=== PATIENT | female | born 1970 | race Two or more races ===

== ENCOUNTER → 2024-06-22 | Outpatient (CLI) | payer BC, SELFPAY ==
--- NOTE | 2024-06-22 07:15 | XR_ITS ---
Examination: Abdomen sonogram, Limited Date and time of exam: June 22, 2024 0711 hrs. Indications: Chronic abdominal pain, history gallstones, history fatty liver Technique: Real-time jean scale transabdominal sonographic images of the upper abdomen obtained. Findings: Multiple gallstones Normal gallbladder wall Normal common bile duct 0.3 cm Pancreatic head 1.4 cm Liver 14.7 cm multiple liver cysts, the largest in the right lobe 3.1 x 2.5 x 3.2 cm Normal hepatopedal portal venous flow Patent IVC Impression: Cholelithiasis, negative for cholecystitis Normal common bile duct
== END | disposition home or self-care (01) ==
PROVIDERS: Referring Provider Nurse Anesthetist, Certified Registered; Visit Provider Nurse Anesthetist, Certified Registered
DX: K80.20 Calculus of gallbladder without cholecystitis without obstruction (principal)
CPT/HCPCS: 76705

== ENCOUNTER → 2024-09-22 | Outpatient (CLI) | payer BC, SELFPAY ==
[2024-09-22 15:11] LABS: Collection Type, Urine Clean Catch; Squamous Epithelial Cell,Urine 0 /hpf (0-5)
[2024-09-22 17:53] LABS: Bilirubin,Urine Negative (Negative); Blood,Urine Negative (Negative); Clarity,Urine Clear (Clear/Hazy); Color,Urine Colorless (Lt Yel-Yel); Glucose, Urine Negative (Negative); Ketones,Urine Negative (Negative); Leukocyte Esterase,Urine Negative (Negative); Nitrite,Urine Negative (Negative); PH,Urine 7.5 (5.0-7.0); Protein,Urine Negative (Neg - Trace); RBC,Urine < 1 /hpf (0-3); Urobilinogen,Urine Negative mg/dL (0.0-1.0); WBC,Urine < 1 /hpf (0-5)
== END | disposition home or self-care (01) ==
LOC: SLDO 14:47
PROVIDERS: Referring Provider Registered Nurse; Visit Provider Registered Nurse
DX: N39.0 Urinary tract infection, site not specified (principal)
CPT/HCPCS: 81001; 87086

== ENCOUNTER → 2024-10-09 | Outpatient (CLI) | payer BC, SELFPAY ==
--- NOTE | 2024-10-09 08:30 | XR_ITS ---
Examination: Screening digital mammography, bilateral Computer aided detection 3-D breast Tomosynthesis, bilateral Date and time of exam: October 09, 2024 0756 hours Compared to mammograms dating to October 29, 2018 Indication: Screening Technique: Nonmagnified MLO, CC views of the breasts to been obtained, reconstructed from 3-D Tomosynthesis images. R2 computer aided detection program utilized for evaluation of suspicious masses and/or abnormal calcifications. 3-D Tomosynthesis images obtained. Findings: The breasts are heterogeneously dense, which may obscure small masses 18 mm focal asymmetry upper outer right breast Intact implants Benign calcifications Impression: BI-RADS Category 0: Incomplete: Need additional imaging evaluation 18 mm focal asymmetry upper outer right breast, recommend follow-up spot tomographic views of this asymmetry as well as right breast sonography to complete the workup
[2024-10-09 08:45] LABS: Basophils % (Auto) 1 % (0-2.5); Eosinophils # (Auto) 0.1 Thou/mm3 (0.0-0.5); Eosinophils % (Auto) 3 % (0-10); Hematocrit 40.8 % (36.0-46.0); Hemoglobin 13.9 g/dL (12.0-16.0); Immature Granulocytes % (Auto) 0 % (0-0); Immature Granulocytes Auto 0.02 Thou/mm3 (0.00-0.00); Lymphocytes % (Auto) 42 % (10-50); Mean Corpuscular HGB Conc 34.1 g/dl (31.0-37.0); Mean Corpuscular Hemoglobin 29.1 pg (25.0-35.0); Mean Corpuscular Volume 86 fL (80-100); Monocytes # (Auto) 0.4 Thou/mm3 (0.0-0.8); Monocytes % (Auto) 8 % (0-12); Neutrophils # (Auto) 2.1 Thou/mm3 (1.8-7.7); Neutrophils % (Auto) 46 % (37-80); Nucleated Red Blood Cell % 0 /100 WBC (0); Platelet Count 206 Thou/mm3 (140-440); RDW Standard Deviation 39.8 fL (36.4-46.3); Red Blood Count 4.77 Miln/mm3 (4.00-5.20); White Blood Count 4.6 Thou/mm3 (3.6-11.0)
[2024-10-09 08:50] LABS: Glucose Estimated Average 111 mg/dL (80-131); Hemoglobin A1C 5.5 % Hgb (4.8-6.0)
[2024-10-09 08:59] LABS: Vitamin D 25 Hydroxy Total 111.6 ng/mL (7.3-40.2)
[2024-10-09 09:13] LABS: Alanine Aminotransferase 19 U/L (10-49); Albumin, Serum 4.1 gm/dL (3.5-5.0); Alkaline Phosphatase 77 U/L (46-116); Anion Gap 7 (7-16); Aspartate Amino Transferase 16 U/L (0-34); BUN/Creatinine Ratio 16 Ratio (12-20); Bilirubin,Total 0.7 mg/dL (0.3-1.2); Blood Urea Nitrogen 13 mg/dL (9-23); Calcium 9.3 mg/dL (8.3-10.6); Calcium (Corrected) 9.3 mg/dL (8.5-10.1); Carbon Dioxide 29.3 mMol/L (20.0-31.0); Cardiac Risk Estimate 4.5 RATIO (3.7-5.6); Chloride 105 mMol/L (98-107); Cholesterol 216 mg/dL (132-200); Creatinine (Component) 0.8 mg/dL (0.6-1.3); Globulin 2.1 gm/dL (2.3-3.5); Glucose 91 mg/dL (74-106); HDL Cholesterol 48 mg/dL (40-60); LDL Cholesterol,Calculated 141 mg/dL (0-130); Osmolality,Calculated 281 (275-295); Potassium 4.5 mMol/L (3.4-5.1); Sodium 141 mMol/L (136-145); Thyroid Stimulating Hormone 1.44 uIU/mL (0.55-4.78); Total Protein 6.2 gm/dL (5.7-8.2); Triglycerides 133 mg/dL (30-150); eGFR > 60 See Note
== END | disposition home or self-care (01) ==
LOC: CDIM 07:39 → COPL 07:46
PROVIDERS: PCP Family Medicine; Referring Provider Registered Nurse; Visit Provider Registered Nurse
DX: Z12.31 Encounter for screening mammogram for malignant neoplasm of breast (principal); E78.5 Hyperlipidemia, unspecified; R79.89 Other specified abnormal findings of blood chemistry; Z83.3 Family history of diabetes mellitus
CPT/HCPCS: 36415; 77063; 77067; 80053; 80061; 82306; 83036; 84443; 85025

== ENCOUNTER → 2024-10-26 | Outpatient (CLI) | payer BC, SELFPAY ==
--- NOTE | 2024-10-26 09:00 | XR_ITS ---
Examination: Breast ultrasound, unilateral, right complete Date and time of exam: October 26, 2024 0856 hours INDICATIONS: Mammogram October 09, 2024 18 mm focal asymmetry upper outer right breast Technique: Real-time jean scale ultrasonographic imaging performed right breast including all 4 quadrants as well as nipple retroareolar and axillary region. Findings: Multiple benign cysts, the largest in the 9:00 position 6 x 5 mm No solid nodules Dilated retroareolar ducts Impression: BI-RADS Category 2: Benign findings
--- NOTE | 2024-10-26 09:30 | XR_ITS ---
Examination: Diagnostic digital mammography, unilateral, right Computer aided detection 3-D breast Tomosynthesis, unilateral Date and time of exam: October 26, 2024 0920 hours INDICATIONS: Mammogram October 09, 2024 18 mm focal asymmetry upper outer right breast Technique: Nonmagnified MLO, CC views of the right breast have been obtained, reconstructed from 3-D Tomosynthesis images. R2 computer aided detection program utilized for evaluation of suspicious masses and/or abnormal calcifications. 3-D Tomosynthesis images obtained. Findings: The breast is heterogeneously dense, which may obscure small masses No suspicious mass Impression: BI-RADS category 2: Benign findings Return to yearly follow-up mammography
== END | disposition home or self-care (01) ==
LOC: CDIM 08:41
PROVIDERS: PCP Registered Nurse; Referring Provider Registered Nurse; Visit Provider Registered Nurse
DX: R92.321 Mammographic fibroglandular density, right breast (principal)
CPT/HCPCS: 76641; 77061; 77065; G0279

== ENCOUNTER 2025-03-20 18:48 | Inpatient (IN) | payer BC, SELFPAY ==
[2025-03-20 18:49] VITALS: BMI 24.1
[2025-03-20 19:31] VITALS: BP 132/88; PULSE 79; RESP 18; TEMP 37.1; O2SAT 98
--- NOTE | 2025-03-20 20:04 | XR_ITS ---
Examination: CT abdomen and pelvis without contrast. Coronal 3-D reconstructions. Sagittal 2-D reconstructions. Date and time of exam:March 20, 2025, 2021 hrs. Indications: Left-sided flank pain with nausea vomiting today CTDI: vol (mGy): 6.78 DLP: (mGycm): 358. Technique: Axial images of the abdomen have been obtained, 3 mm slice thickness Intravenous contrast material has not been administered. Low dose protocols were performed. One or more of the following dose reduction techniques were used; automated exposure control, adjustment of the mA and/or KV according to patient size, use of iterative reconstruction technique. Findings: Benign liver cysts. No gallstones. No splenic lesion No pancreatic or adrenal mass. No renal or ureteral calculi, no hydronephrosis Aorta normal size. Multiple fluid distended small bowel loops No pericecal inflammatory change No pelvic mass Mild free fluid in the pelvis Urinary bladder intact Impression: Suspicious for early small bowel obstruction, consider Gastrografin small bowel series follow-up.
[2025-03-20 20:43] LABS: Collection Type, Urine Clean Catch
[2025-03-20 20:47] LABS: Basophils # (Auto) 0.0 Thou/mm3 (0.0-0.2); Basophils % (Auto) 0 % (0-2.5); Eosinophils # (Auto) 0.0 Thou/mm3 (0.0-0.5); Eosinophils % (Auto) 0 % (0-10); Hematocrit 42.7 % (36.0-46.0); Hemoglobin 14.9 g/dL (12.0-16.0); Immature Granulocytes Auto 0.02 Thou/mm3 (0.00-0.00); Lymphocytes # (Auto) 1.6 Thou/mm3 (1.0-4.8); Lymphocytes % (Auto) 18 % (10-50); Mean Corpuscular HGB Conc 34.9 g/dl (31.0-37.0); Mean Corpuscular Hemoglobin 29.6 pg (25.0-35.0); Mean Corpuscular Volume 85 fL (80-100); Monocytes # (Auto) 0.4 Thou/mm3 (0.0-0.8); Monocytes % (Auto) 5 % (0-12); Neutrophils # (Auto) 7.0 Thou/mm3 (1.8-7.7); Neutrophils % (Auto) 77 % (37-80); Nucleated Red Blood Cell # 0.00 Thou/mm3 (0.00-0.00); Nucleated Red Blood Cell % 0 /100 WBC (0); Platelet Count 183 Thou/mm3 (140-440); RDW Standard Deviation 40.3 fL (36.4-46.3); Red Blood Count 5.04 Miln/mm3 (4.00-5.20); White Blood Count 9.1 Thou/mm3 (3.6-11.0)
[2025-03-20 20:55] LABS: HCG Qualitative,Urine Negative
[2025-03-20 20:56] LABS: Amorphous Crystals,Urine Present (Absent); Bilirubin,Urine Negative (Negative); Blood,Urine Negative (Negative); Budding Yeast,Urine Present; Clarity,Urine Turbid (Clear/Hazy); Color,Urine Drk-Yellow (Lt Yel-Yel); Glucose, Urine Negative (Negative); Ketones,Urine Negative (Negative); Leukocyte Esterase,Urine Negative (Negative); Nitrite,Urine Positive (Negative); PH,Urine 7.0 (5.0-7.0); Protein,Urine 1+ (Neg - Trace); RBC,Urine 2 /hpf (0-3); Specific Gravity,Urine 1.032 (1.001-1.035); Squamous Epithelial Cell,Urine 18 /hpf (0-5); Urobilinogen,Urine 2.0 mg/dL (0.0-1.0); WBC,Urine 4 /hpf (0-5)
[2025-03-20] MEDS: ONDANSETRON INJ 2 MG/ML INJ 2 ML 4 MG IM (20:56)
[2025-03-20 21:26] LABS: Alanine Aminotransferase 14 U/L (10-49); Albumin, Serum 4.7 gm/dL (3.5-5.0); Albumin/Globulin Ratio 1.7 (1.2-2.2); Alkaline Phosphatase 85 U/L (46-116); Anion Gap 12 (7-16); Aspartate Amino Transferase 22 U/L (0-34); BUN/Creatinine Ratio 10 Ratio (12-20); Bilirubin,Total 1.0 mg/dL (0.3-1.2); Blood Urea Nitrogen 8 mg/dL (9-23); Calcium 10.3 mg/dL (8.3-10.6); Calcium (Corrected) 10.3 mg/dL (8.5-10.1); Carbon Dioxide 27.7 mMol/L (20.0-31.0); Chloride 98 mMol/L (98-107); Creatinine (Component) 0.8 mg/dL (0.6-1.3); Estimated Creatinine Clearance 72.3 mL/min (>60); Globulin 2.7 gm/dL (2.3-3.5); Glucose 133 mg/dL (74-106); Osmolality,Calculated 275 (275-295); Potassium 3.6 mMol/L (3.4-5.1); Sodium 138 mMol/L (136-145); Total Protein 7.4 gm/dL (5.7-8.2); eGFR > 60 See Note
--- NOTE | 2025-03-20 22:20 | PD.EDABDPN ---
ED Abdominal Pain RME/HPI General Chief Complaint: Flu Like Symptoms Stated complaint: ABD PAIN, BACK PAIN, VOMITING SINCE YESTERDAY Time seen by provider: 03/20/25 18:53 Arrival date/time: 03/20/25 18:48 THIS IS A CASE OF 58 YEAR OLD FEMALE CAME IN THE EMERGENCY ROOM DUE TO ABDOMINAL PAIN GENERALIZED FOR 2 DAYS ASSOCIATED WITH NAUSEA AND VOMITING PAIN IS CRAMPING AND SHARP IN CHARACTER RADIATING TO THE BACK PATIENT DENIES ANY CONSTIPATION OR DIARRHEA Limitations: no limitations Related Data Previous Rx's ?Medication ?Instructions ?Recorded hydrocodone 5 mg-acetaminophen 300 1 tab PO BID PRN pain #4 tabs 01/28/ mg tablet Allergies Allergy/AdvReac Type Severity Reaction Status Date / Time No Known Allergies Allergy Verified 03/20/25 18:50 Review of Systems Review of Systems Systems Reviewed: All systems reviewed, normal except as documented Constitutional Constitutional: Reports system reviewed and no additional complaints, except as documented and Reports as per HPI ENT Ears, Nose, Mouth, and Throat: Denies dysphagia and Denies odynophagia Cardiovascular Cardiovascular: Reports system reviewed and no additional complaints, except as documented and Reports as per HPI Respiratory Respiratory: Reports system reviewed and no additional complaints, except as documented and Reports as per HPI Gastrointestinal Gastrointestinal: Reports system reviewed and no additional complaints, except as documented, Reports as per HPI, Reports abdominal pain, Denies belching, Denies bloating, Denies change in bowel habits, Denies change in stool character, Denies coffee ground emesis, Denies constipation, Denies cramping, Denies diarrhea, Denies dyspepsia, Denies dysphagia, Denies early satiety, Denies excessive flatus, Denies fecal incontinence, Denies heartburn, Denies hematemesis, Denies hematochezia, Denies loose stools, Denies melena, Reports nausea, Denies odynophagia, Denies tenesmus and Reports vomiting Neurologic Neurologic: Reports system reviewed and no additional complaints, except as documented and Reports as per HPI Past Medical History Past Medical History ENDOCRINE: Negative Diabetes Mellitus Type 2 Social History SMOKING STATUS: Never smoker ED Exam General Limitations: Present no limitations General appearance: Present alert, in no apparent distress and other (Patient is awake alert oriented not in distress nontoxic looking well-hydrated well-nourished) Head Head exam: Present atraumatic, normocephalic and normal inspection Eye Eye exam: Present normal appearance, PERRL and EOMI ENT ENT exam: Present normal exam, normal oropharynx and mucous membranes moist Neck Neck exam: Present normal inspection, full ROM and trachea midline; Absent tenderness Chest Chest inspection: Present normal inspection and symmetric chest wall rise; Absent tenderness Respiratory Respiratory exam: Present normal lung sounds bilaterally; Absent respiratory distress, wheezes, stridor, accessory muscle use or prolonged expiratory phase Cardiovascular Cardiovascular exam: Present regular rate, normal rhythm and normal heart sounds; Absent bradycardia, tachycardia, irregular rhythm or diastolic murmur Abdominal Exam Abdominal exam: Present soft, tenderness (Generalized tenderness no CVA tenderness) and normal bowel sounds; Absent distention, guarding, rebound, rigidity, diminished bowel sounds, hyperactive bowel sounds, hypoactive bowel sounds, organomegaly, psoas sign, obturator sign, Mora's sign, Rovsing's sign or tenderness at McBurney's Point Extremities Exam Extremities exam: Present normal inspection and full ROM Back Exam Back exam: Present normal inspection and full ROM Neurological Exam Neurological exam: Present alert, oriented X3, CN II-XII intact, normal gait and reflexes normal; Absent motor sensory deficit Psychiatric Psychiatric exam: Present normal affect and normal mood Skin Skin exam: Present warm, dry, intact and normal color Course Quality Measures none Orders Category Date Time Status COVID-19 Screening Questionnaire NOW Care 03/20/25 22:21 Active Decision to Admit X1 Care 03/20/25 22:20 Active NPO NOW Care 03/20/25 22:20 Active Diet NPO (NOW) Diet 03/20/25 22:[address] abdomen pelvis wo con Stat Exams 03/20/25 20:04 Completed CBC Stat Lab 03/20/25 20:32 Completed Comprehensive Metabolic Panel Stat Lab 03/20/25 20:32 Results HCG Qualitative,Urine Stat Lab 03/20/25 20:29 Completed Lipase Stat Lab 03/20/25 20:32 Results Urinalysis Stat Lab 03/20/25 20:29 Completed Ondansetron Inj [Zofran Inj] Med 03/20/25 20:40 Discontinued 4 mg IM X1 ONE Vital Signs Vital signs: Vital Signs Temperature 98.7 F 03/20/25 19:31 Pulse Rate 79 03/20/25 19:31 Respiratory Rate 18 03/20/25 19:31 Blood Pressure 132/88 H 03/20/25 19:31 Pulse Oximetry (%) 98 03/20/25 19:31 Oxygen Delivery Method Room Air 03/20/25 19:31 Oxygen saturation is 98% on room air Abdominal Pain MDM MDM Narrative MDM Narrative:: THIS IS A CASE OF 58 YEAR OLD FEMALE CAME IN THE EMERGENCY ROOM DUE TO ABDOMINAL PAIN GENERALIZED FOR 2 DAYS ASSOCIATED WITH NAUSEA AND VOMITING PAIN IS CRAMPING AND SHARP IN CHARACTER RADIATING TO THE BACK PATIENT DENIES ANY CONSTIPATION OR DIARRHEA physical examination patient is awake alert oriented not in distress nontoxic looking well-hydrated well-nourished no signs and symptoms of sepsis or dehydration abdominal exam noted to have generalized abdominal tenderness but no guarding or rebound no rigidity negative psoas negative straight and negative Rovsing's negative [place]'s negative sign negative CVA tenderness blood test showed no leukocytosis no anemia kidney and liver function is normal electrolytes and balance pending lipase urinalysis normal CT scan of the abdomen pelvis showed showed early small bowel obstruction spoke to Dr. Carmichael GI consult discussed patient condition history and physical examination relayed results of blood test and imaging he ordered to admit the patient by hospitalist ordered NGT n.p.o. and he will see the patient tomorrow I spoke to the hospitalist Dr. BURCH discussed patient condition history and physical examination result the result of the blood test and imaging and the order of Dr. Carmichael agreed that the patient need to be admitted and accept patient admission discussed with the patient the treatment plan and admission and agreed Patient data External records reviewed:: [facility] previous records Clinical information provided by:: patient Social determinants that could affect healthcare access:: none Patient has the following chronic illnesses:: None How is presenting disease/condition affected by chronic disease/condition?: no chronic disease Evaluation data The following diagnostics were reviewed and interpreted by me:: lab results and radiology exam(s) Lab and/or radiology exams considered but not ordered:: Reviewed Interpretation Summary: Reviewed Medications / Prescriptions Medications or Prescriptions considered but not ordered:: Given Medication administrations:: Medication Administration History Discontinued Medications Ondansetron HCl (Ondansetron Inj 2 Mg/Ml Inj 2 Ml) 4 mg IM X1 ONE; Protocol Stop: 03/20/25 20:41 Last Admin: 03/20/25 20:56 Dose: 4 mg Documented By: Given Consultations Consultation(s) initiated? (list below): Yes Consultation #1 (Physician, Specialty, Details): Dr. Carmichael GI consult discussed patient condition history and physical examination relayed the results of CT scan small bowel obstruction ordered to admit patient by hospitalist Consultation #2 (Physician, Specialty, Details): Dr BURCH discussed patient condition history and physical examination relayed results of the blood test and imaging and the order of Dr. Carmichael agreed that the patient need to be admitted and accept patient care Diagnosis Differential diagnosis abdominal pain: abdominal pain, acute appendicitis, calculus of kidney, diverticulitis, endometriosis, gastroenteritis and small bowel obstruction Most likely diagnosis given after review of the tests above:: Small bowel obstruction Admission Indicated Admission indicated?: indicated Explain why admission is indicated or not indicated:: Small bowel obstruction Admission Request Was there a request for admission?: Yes Admission Attestation Admission request attestation: Discussed case with [] from Hospitalist service regarding admission. Discussed patients ED course, exam findings, labs, and radiology results. The Hospitalist [agrees,declines] to accept the patient for admission. Disposition Plan Disposition Plan: Admit Discharge Plan Plan Patient Disposition: HOME (Self Care) Prescriptions/Referrals Prescriptions/Med Rec: No Action hydrocodone-acetaminophen 5-300 mg tablet 1 tab PO BID MDD 2/day PRN (Reason: pain) Qty: 4 0RF Referrals: Annie Wisdom MD [Primary Care Provider, Family Practice] - In 1 week Problem List Clinical Impression: Abdominal pain, Small bowel obstruction Patient/Caregiver Discharge Instructions Education Materials: Abdominal Pain, Small Bowel Obstruction Print Language: [place] Stand Alone Forms: Candice Award Info., Patient Portal Info Letter PA/NATIONAL SALES REPRESENTATIVE Supervising Physician PA/NATIONAL SALES REPRESENTATIVE Supervising Physician: Dr. Gerard
--- NOTE | 2025-03-20 23:07 | XR_ITS ---
Examination: Small bowel series AP supine abdomen 4 views Date and time: March 21, 2025, 0037 hrs. Indications: Abdominal pain and distention, small bowel obstruction pattern on CT study yesterday dilated small bowel loops Technique And Findings: Patient received 120 cc through the orogastric tube AP supine abdomen films immediate, 30 minutes, 1 hour and 2 hours obtained Dilated small bowel loops are noted, moderate Impression: Small bowel obstruction pattern Recommend follow-up abdomen films 6:00 AM, 9:00 AM
--- NOTE | 2025-03-20 23:19 | XR_ITS ---
Examination: AP chest single view Technique: AP portable upright chest single view Date and time: March 20, 2025, 11:30 PM. Indications: Status post orogastric tube placement Findings: Orogastric tube tip in the stomach satisfactory position Normal heart size. No lobar pneumonia. Minor atelectasis left base Impression: Orogastric tube satisfactory position
[2025-03-20 23:49] VITALS: BP 139/97; PULSE 94; RESP 18; TEMP 36.8; O2SAT 98
[2025-03-21 00:08] VITALS: BMI 23.8
--- NOTE | 2025-03-21 00:14 | ESHP_ITS ---
Documentation for date of: 03/21/25 [facility] History of Present Illness History of present illness: This is a 55 year-old female with no significant PMHx presenting to the ED with abdominal pain, nausea and vomiting. Pain started 3 days ago, constant, diffusely, rated 4-5/10, not related to eating, associated with nausea and vomiting of mainly abdominal content. She has a history of abdominal surgery including ventral hernia repair with mesh, abdominoplasty, and tubal ligation. Reports chronic constipation, usually she takes METMUCIL and constipation resolve usually. Also reports drinking less fluids over the last week, and has been out in the sun exercising daily. Last BM was this morning, small, non-bloody, normal consistency. Currently unable to tolerated oral intake due to nausea and vomiting. Denies headache, chills, fever, fall or trauma, diarrhea, abnormal weight change, upper or lower GI bleed inlcuding dark stool, dysuria, urinary frequency or urgency, or hematuria. Past Medical History: * None. Past Surgical History: * Tubal ligation, abdominoplasty, ventral hernia repair with mesh. * 3 full term , natural , no . Medications: * Multivitamin. Allergies: * NKA. Family History: * Non relevant Social History: * Denies alcohol, tobacco, or drug use. ED Course: * Slightly elevated BP at 132/88, HR 79, RR 18, afebrile, satting 98% on room air. * CBC unremarkable. * CHEM panel remarkable for GLUCOSE 133, corrected calcium 10.3, remainder CMP WNL. Lipase is pending. * UA showed nitrites, no WBC or RBC. * Abdominal CT showed early small bowel obstruction. Reason for admission: Early small bowel obstruction, refractory nausea and vomiting requiring IV fluids. Exam Vital Signs Temp Pulse Resp BP Pulse Ox O2 Del Method 98.2 F 94 18 139/97 H 98 Room Air 03/20/25 23:49 03/20/25 23:49 03/20/25 23:49 03/20/25 23:49 03/20/25 23:49 03/20/25 23:49 Narrative Exam GENERAL * Normal appearing make, in mild distress 2/2 pain. HEENT * NCAT.?DORY. Oral mucosa is moist. Patent Nares NECK * Supple, nontender, no JVD. CHEST * RRR, no m/g/r * CTAB, no w/r/r, symmetrical expansion. ABDOMEN * Soft, flat, diffuse tender to palpation * No guarding/rebound tenderness/masses. * Bowel sounds presents. EXTREMITIES * No edema/cyanosis.? SKIN * Warm and dry, no jaundice/rashes. NEUROMUSCULAR * No lumbar or midline, no CVA, no paraspinal muscle spasm or tenderness. * Moves all 4 extremities well, with full ROM and good CSM. * CASTANEDA x4, CN II-XII grossly intact. * No focal neurologic deficits. PSYCHIATRY * Normal mood and affect, cooperative, no SI or HI or hallucinations. Results: Labs 03/20/25 20:32 03/20/25 20:32 Labs: Short CBC 03/20/25 Range/Units 20:32 WBC 9.1 (3.6-11.0) Thou/mm3 Hgb 14.9 (12.0-16.0) g/dL Hct 42.7 (36.0-46.0) % Plt Count 183 (140-440) Thou/mm3 BMP 03/20/25 20:32 Sodium 138 Potassium 3.6 Chloride 98 Carbon Dioxide 27.7 BUN 8 L Creatinine 0.8 Glucose 133 H Calcium 10.3 Liver Function 03/20/25 Range/Units 20:32 Total Bilirubin 1.0 (0.3-1.2) mg/dL AST 22 (0-34) U/L ALT 14 (10-49) U/L Alkaline Phosphatase 85 (46-116) U/L Albumin 4.7 (3.5-5.0) gm/dL Urine 03/20/25 Range/Units 20:29 Urine Color Drk-Yellow A (Lt Yel-Yel) Urine Clarity Turbid A (Clear/Hazy) Urine pH 7.0 (5.0-7.0) Ur Specific [place] 1.032 (1.001-1.035) Urine Protein 1+ A (Neg - Trace) Urine Glucose (UA) Negative (Negative) Quality Measures Quality Measures none Medications Home Medications and Allergies Allergies Allergy/AdvReac Type Severity Reaction Status Date / Time No Known Allergies Allergy Verified 03/20/25 18:50 Visit Medications Acetaminophen (Acetaminophen 325 Mg Tablet) 650 mg NG Q6H PRN PRN Reason: PAIN SCALE 1-3 (mild Stop: 04/19/25 23:06 Acetaminophen (Acetaminophen 325 Mg Tablet) 650 mg PO Q6H PRN PRN Reason: Fever >100.4 Stop: 04/19/25 23:06 Heparin Sodium (Porcine) (Heparin Sod Inj 5000 Unit/Ml Vial) 5,000 unit SC BID DIONICIO Stop: 04/04/25 08:59 Morphine Sulfate (Morphine Sulf Inj 4 Mg/Ml Vial) 4 mg IV Q3HR PRN PRN Reason: PAIN SCALE 4-6 (Moderate Stop: 03/25/25 23:08 Morphine Sulfate (Morphine Sulf Inj 4 Mg/Ml Vial) 2 mg IV Q3HR PRN PRN Reason: PAIN SCALE 7-10 (Severe Stop: 03/25/25 23:08 Ondansetron HCl (Ondansetron Inj 2 Mg/Ml Inj 2 Ml) 4 mg IVP Q6H PRN; Protocol PRN Reason: NAUSEA OR VOMITING Stop: 04/19/25 23:06 Pantoprazole Sodium (Pantoprazole Inj 40 Mg Vial) 40 mg IVP QDAY DIONICOI Stop: 04/20/25 08:59 Discontinued Medications Ondansetron HCl (Ondansetron Inj 2 Mg/Ml Inj 2 Ml) 4 mg IM X1 ONE; Protocol Stop: 03/20/25 20:41 Last Admin: 03/20/25 20:56 Dose: 4 mg Assessment & Plan Plan Otherwise healthy 55 year-old female admitted for early SBO, nausea and vomiting. Early SBO Refractory nausea and vomiting Hx of multiple abdominal surgeries Presents with 3 days of abdominal pain, nausea and vomiting. Last BM was this morning and was small and normal. CT findings of early bowel obstruction. No signs or symptoms of bowel ischemia. Nausea appears refractory and will need NGT intermittent suction. ? NPO, bowel rest ? NGT intermittent suction ? Small bowel series ? Antiemetics, PROTONIX, pain control PRN ? Maintanance NS @ 75 cc/h ? Pending LIPASE Mild hypercalcemia Corrected CA 10.3 likley in setting of dehyration ? Daily labs Hyperglycemia Elevated BP Maybe reactive. No hx of diabetes or HTN. ? Daily labs ? Daily vitals Asymptomatic bacteriuria UA positive for nitrite, no WBC. She is otherwise asymptomatic, afebrile, no leukocytosis. No indication for treatment at this time. Health maintenance Diet: NPO GI prophylaxis: PROTONIX DVT prophylaxis: HEPARIN SUBC Antibiotics: Not indicated CODE STATUS: FULL CODE Disposition: Treating early SBO Case was discussed with attending physician, Dr. Ferrera. Rose De Dios, DO PGY II This document was transcribed using voice recognition technology. Minor inaccuracies may be present. Attending Provider Attestation/Addendum After examination of the patient and review of the clinical data I feel that this patient needs admission to the hospital for further treatment/evaluation. Plan of care discussed with patient and is in agreement. I Emy Ferrera MD, attest that I was physically present for wheeler portions of evaluation, and examined patient, labs and imagings and plan of care were discussed with IM residents team, and I agree with the findings and plans documented above.
[2025-03-21] MEDS: SODIUM CHLORIDE 0.9% 1000 ML 1,000 ML 75 ML IV (00:52)
[2025-03-21 04:00] VITALS: BP 118/73; PULSE 96; RESP 18; TEMP 36.6; O2SAT 93
[2025-03-21 06:18] LABS: Basophils # (Auto) 0.0 Thou/mm3 (0.0-0.2); Basophils % (Auto) 0 % (0-2.5); Eosinophils # (Auto) 0.0 Thou/mm3 (0.0-0.5); Eosinophils % (Auto) 0 % (0-10); Hematocrit 43.7 % (36.0-46.0); Hemoglobin 15.0 g/dL (12.0-16.0); Immature Granulocytes Auto 0.02 Thou/mm3 (0.00-0.00); Lymphocytes # (Auto) 1.3 Thou/mm3 (1.0-4.8); Lymphocytes % (Auto) 14 % (10-50); Mean Corpuscular HGB Conc 34.3 g/dl (31.0-37.0); Mean Corpuscular Hemoglobin 29.5 pg (25.0-35.0); Mean Corpuscular Volume 86 fL (80-100); Monocytes # (Auto) 0.4 Thou/mm3 (0.0-0.8); Monocytes % (Auto) 4 % (0-12); Neutrophils # (Auto) 7.5 Thou/mm3 (1.8-7.7); Neutrophils % (Auto) 82 % (37-80); Nucleated Red Blood Cell # 0.00 Thou/mm3 (0.00-0.00); Nucleated Red Blood Cell % 0 /100 WBC (0); Platelet Count 178 Thou/mm3 (140-440); RDW Standard Deviation 40.2 fL (36.4-46.3); Red Blood Count 5.08 Miln/mm3 (4.00-5.20); White Blood Count 9.2 Thou/mm3 (3.6-11.0)
--- NOTE | 2025-03-21 06:45 | XR_ITS ---
Examination: Abdomen AP single view Technique: AP portable supine abdomen, single view Exam date and time: March 21, 2025, 0645 hrs. Indications: Abdominal pain and distention this week, 6 hour delayed film post small bowel series Findings: Most of the contrast is in the distended stomach There is contrast in distended mid small bowel loops, ileal loops appear more normal in configuration There is some contrast in the colon Impression: Incomplete small bowel obstruction, recommend follow-up film 1200 noon
[2025-03-21 06:48] LABS: Alanine Aminotransferase 13 U/L (10-49); Albumin, Serum 4.8 gm/dL (3.5-5.0); Albumin/Globulin Ratio 2.0 (1.2-2.2); Alkaline Phosphatase 80 U/L (46-116); Anion Gap 12 (7-16); Aspartate Amino Transferase 16 U/L (0-34); BUN/Creatinine Ratio 10 Ratio (12-20); Bilirubin,Total 1.0 mg/dL (0.3-1.2); Blood Urea Nitrogen 8 mg/dL (9-23); Calcium 10.3 mg/dL (8.3-10.6); Calcium (Corrected) 10.3 mg/dL (8.5-10.1); Carbon Dioxide 30.3 mMol/L (20.0-31.0); Chloride 99 mMol/L (98-107); Creatinine (Component) 0.8 mg/dL (0.6-1.3); Estimated Creatinine Clearance 72.3 mL/min (>60); Globulin 2.4 gm/dL (2.3-3.5); Glucose 126 mg/dL (74-106); Magnesium 2.1 mg/dL (1.6-2.6); Osmolality,Calculated 281 (275-295); Phosphorous 4.0 mg/dL (2.4-5.1); Potassium 3.6 mMol/L (3.4-5.1); Sodium 141 mMol/L (136-145); Total Protein 7.2 gm/dL (5.7-8.2); eGFR > 60 See Note
--- NOTE | 2025-03-21 07:51 | PD.RESPRO ---
Documentation for date of: 03/21/25 Subjective Subjective Interval history: Ms Mart is a 55-year-old woman with no significant past medical history who presented with 3 days of abdominal pain nausea vomiting with an extensive surgical history of abdominoplasty tubal ligation and ventral hernia repair. She was admitted for obstruction NG tube was placed now continues on Gastrografin small bowel series. 03/21/2025: Patient seen and examined at bedside patient family and daughters did express concern that this may happen again and inquire about possible preventative measures they can take to reduce the risk. Patient and family are informed that abdominal surgery is the most predictive risks factor for developing small bowel obstruction, recommend that she establish care with general surgery in case this were to happen in the future. This morning patient endorsed having later endorsed watery bowel movement her pain was minimal she started on 1 bag of IV Tylenol and maintenance fluids with 85 cc/kg of LR. She had 1 episode of emesis at 730 this morning that resolved with Zofran. Follow-up 12 PM abdominal x-ray series. Exam Vital Signs Temp Pulse Resp BP Pulse Ox O2 Del Method 97.9 F 96 18 118/73 93 L Room Air 03/21/25 04:00 03/21/25 04:00 03/21/25 04:00 03/21/25 04:00 03/21/25 04:00 03/21/25 04:00 Narrative Exam GENERAL: no acute distress, AAO x3, comfortably laying in bed HEENT: Head AT/ NC. Mucous membranes moist. PERRL. NG tube in place (clamped) CARDIOVASCULAR: RRR. Normal S1/S2, No m/r/g. No pitting edema of bilateral LEs. RESPIRATORY: CTAB. No wheezing, rhonchi, crackles. GASTROINTESTINAL: Abdomen soft, mild epigastric tenderness to palpation no palpable masses. Bowel sounds present (hx of abdominal surgeries). MUSCULOSKELETAL:? No cyanosis or edema, no visible joint swelling. NEUROLOGICAL: CN II-XII grossly intact. No focal deficits. Sensation intact, symmetric. PSYCHIATRIC: Awake and alert, not agitated, normal mood and affect. SKIN: No obvious rashes, no jaundice, normal turgor. Objective Labs 03/22/25 04:27 03/22/25 04:27 Labs: Laboratory Results - last 24 hr 03/20/25 03/20/25 03/21/25 20:29 20:32 05:55 WBC 9.1 9.2 RBC 5.04 5.08 Hgb 14.9 15.0 Hct 42.7 43.7 MCV 85 86 MCH 29.6 29.5 MCHC 34.9 34.3 RDW Std Deviation 40.3 40.2 Plt Count 183 178 Neut % (Auto) 77 82 H Lymph % (Auto) 18 14 [place] % (Auto) 5 4 Eos % (Auto) 0 0 Baso % (Auto) 0 0 Neut # (Auto) 7.0 7.5 Lymph # (Auto) 1.6 1.3 [place] # (Auto) 0.4 0.4 Eos # (Auto) 0.0 0.0 Baso # (Auto) 0.0 0.0 Immature Gran # (Auto) 0.02 H 0.02 H Absolute Nucleated RBC 0.00 0.00 Immature Gran % 0 0 Nucleated RBC % 0 0 Sodium 138 141 Potassium 3.6 3.6 Chloride 98 99 Carbon Dioxide 27.7 30.3 Anion Gap 12 12 BUN 8 L 8 L Creatinine 0.8 0.8 Estim Creat Clear Calc 72.3 72.3 eGFR > 60 > 60 BUN/Creatinine Ratio 10 L 10 L Glucose 133 H 126 H Calculated Osmolality 275 281 Calcium 10.3 10.3 Corrected Calcium 10.3 H 10.3 H Phosphorus 4.0 Magnesium 2.1 Total Bilirubin 1.0 1.0 AST 22 16 ALT 14 13 Alkaline Phosphatase 85 80 Total Protein 7.4 7.2 Albumin 4.7 4.8 Globulin 2.7 2.4 Albumin/Globulin Ratio 1.7 2.0 Ur Collection Type Clean Catch Urine Color Drk-Yellow A Urine Clarity Turbid A Urine pH 7.0 Ur Specific [place] 1.032 Urine Protein 1+ A Urine Glucose (UA) Negative Urine Ketones Negative Urine Blood Negative Urine Nitrite Positive Urine Bilirubin Negative Urine Urobilinogen (Auto) 2.0 Ur Leukocyte Esterase Negative Urine RBC 2 Urine WBC 4 Ur Squamous Epith Cells 18 H Amorphous Crystals Present A Urine Bacteria None Urine Yeast (Budding) Present A Urine HCG, Qual Negative Quality Measures Quality Measures VTE prophylaxis Assessment & Plan Assessment Current Active Medications: Generic Name Dose Route Start Last Admin Trade Name Freq PRN Reason Stop Dose Admin Acetaminophen 650 mg 03/20/25 23:07 Acetaminophen 325 Mg Tablet NG 04/19/25 23:06 Q6H PRN PAIN SCALE 1-3 (mild Acetaminophen 650 mg 03/20/25 23:07 Acetaminophen 325 Mg Tablet PO 04/19/25 23:06 Q6H PRN Fever >100.4 Heparin Sodium (Porcine) 5,000 unit 03/21/25 09:00 Heparin Sod Inj 5000 Unit/Ml Vial SC 04/04/25 08:59 BID DIONICIO Sodium Chloride 1,000 mls @ 75 mls/hr 03/21/25 00:30 03/21/25 00:52 Ns IV 04/20/25 00:29 75 mls/hr .[id number] DIONICIO Administration Morphine Sulfate 4 mg 03/20/25 23:09 Morphine Sulf Inj 4 Mg/Ml Vial IV 03/25/25 23:08 Q3HR PRN PAIN SCALE 4-6 (Moderate Morphine Sulfate 2 mg 03/20/25 23:09 Morphine Sulf Inj 4 Mg/Ml Vial IV 03/25/25 23:08 Q3HR PRN PAIN SCALE 7-10 (Severe Ondansetron HCl 4 mg 03/20/25 23:07 Ondansetron Inj 2 Mg/Ml Inj 2 Ml IVP 04/19/25 23:06 Q6H PRN NAUSEA OR VOMITING Protocol Pantoprazole Sodium 40 mg 03/21/25 09:00 Pantoprazole Inj 40 Mg Vial IVP 04/20/25 08:59 QDAY DIONICIO Plan Ms. Chery Rosenthal is a 55-year-old woman with past medical history significant for several abdominal surgeries (abdominoplasty tubal ligation ventral hernia repair with mesh) who presented to the emergency department with 3 days of abdominal pain nausea and vomiting found to have evidence of early small bowel obstruction on CTAP, NG tube was placed, started on Gastrografin small bowel series, endorses passing gas and having watery bowel movement today. Consider removing NG tube this evening if she does not endorse persistent nausea. Early SBO Refractory nausea and vomiting Hx of multiple abdominal surgeries Presents with 3 days of abdominal pain, nausea and vomiting. Last BM was this morning and was small and normal. CT findings of early bowel obstruction. No signs or symptoms of bowel ischemia. CTAP with c/f early sbo ? NPO, bowel rest ? NGT clamped ? Small bowel series- ongoing ? Antiemetics, PROTONIX, pain control (IV apap, 1 bag given) ? Maintanance LR 85 cc/hr ? Pending LIPASE Mild hypercalcemia Corrected CA 10.3 likley in setting of dehyration ? Daily labs - cont IV fluids Asymptomatic pyuria UA positive for nitrite, 4 WBC. She is otherwise asymptomatic, afebrile, no leukocytosis. No indication for treatment at this time. Health maintenance Diet: NPO GI prophylaxis: PROTONIX DVT prophylaxis: HEPARIN SUBC Antibiotics: Not indicated CODE STATUS: FULL CODE Disposition: ongoing small bowel series Plan discussed with Dr. Juan C Calvo MD PGY1 Attending Provider Attestation/Addendum I have examined the patient, reviewed labs and imaging findings, discussed the case with the resident(s), and reviewed entered orders. I agree with the plan of care as outlined in this note, with these additional summaries/recommendations: Patient seen at bedside. Patient admitted overnight for small bowel obstruction. Patient and family seen at bedside. She reports her pain is currently controlled with current regimen. NG tube in place to LIS. Patient undergoing small bowel series. Likely etiology for SBO related to previous abdominal surgeries/adhesions. While seeing patient, she had a large watery bowel movement. At this time unclear if bowel movement was residual stool passed blockage or if SBO has resolved. Will continue to follow-up small bowel series. If unresolving we will consult general surgery. Continue IVF. NPO. Zofran as needed for nausea. Patient and family updated on the plan and in agreement. All questions answered to satisfaction. Please see residents note for additional details and management. Dr. Juan C MD
[2025-03-21] MEDS: ONDANSETRON INJ 2 MG/ML INJ 2 ML 4 MG IVP (07:55)
[2025-03-21 08:00] VITALS: BP 130/85; PULSE 91; RESP 16; TEMP 36.4; O2SAT 93
[2025-03-21] MEDS: HEPARIN SOD INJ 5000 UNIT/ML VIAL SC ×2 (08:04→20:05)
[2025-03-21] MEDS: ACETAMINOPHEN IVPB 1,000 MG/100 ML VIAL 250 MG IV (09:11)
[2025-03-21] MEDS: RINGERS LACTATED 1000 ML 1,000 ML 85 ML IV ×2 (09:37→21:10)
--- NOTE | 2025-03-21 09:45 | XR_ITS ---
Examination: Abdomen AP single view Technique: AP portable supine abdomen, single view Exam date and time: 9 hour delayed films post SBS, abdominal pain and distension this week Findings: Contrast now present throughout the colon Impression: Negative for complete small bowel obstruction
--- NOTE | 2025-03-21 11:33 | PC.SS ---
Addendum entered by DELMER Graf 03/21/25 15:27: Rounding note: d/c tomorrow. Original Note: Patient is a 55 year old female presenting to the hospital for SBO. TIMBER CUTTER met with patient, at bedside, was family. Patient gave permission for family to remain in room. TIMBER CUTTER introduced self and role and reason for visit explained. Patient confirmed demographic information and confirmed she lives at home with her Esdras Mart PH: [phone]. In case she is unable to make medical decisions on her own she would like her Esdras to make them. Patient stated that she does not use any DME, does not have diabetes, and does not receive dialysis. Patient is employed daytime caregiver. Her PCP is Dr. Wisdom last appointment was in September 2024. Once medically clear patient would like to return home and family will provide transportation. Patient stated that she has not SS needs at the moment, SS will be available if any needs present themselves. PCP: Dr. Wisdom Decision maker: Chet Dewitt, d/c: home
[2025-03-21 12:00] VITALS: BP 126/82; PULSE 88; RESP 18; TEMP 36.3; O2SAT 92
--- NOTE | 2025-03-21 12:00 | XR_ITS ---
Examination: Abdomen AP single view Technique: AP portable supine abdomen, single view Exam date and time: March 21, 2025 1158 hours INDICATIONS: 12 hour delayed film post small bowel series today. FINDINGS: Most of the contrast is in the colon IMPRESSION: Negative for small bowel obstruction. No further films are needed
[2025-03-21 16:00] VITALS: BP 136/81; PULSE 83; RESP 16; TEMP 36.6; O2SAT 99
[2025-03-21 20:00] VITALS: BP 123/72; PULSE 84; RESP 18; TEMP 36.8; O2SAT 94
[2025-03-21 22:04] LABS: Lipase 35 U/L (12-53)
[2025-03-22] VITALS: BP 114/69; PULSE 76; RESP 17; TEMP 36.4; O2SAT 94
[2025-03-22 04:00] VITALS: BP 102/61; PULSE 73; RESP 16; TEMP 36.6; O2SAT 97
[2025-03-22 05:33] LABS: Basophils # (Auto) 0.0 Thou/mm3 (0.0-0.2); Basophils % (Auto) 1 % (0-2.5); Eosinophils # (Auto) 0.1 Thou/mm3 (0.0-0.5); Eosinophils % (Auto) 2 % (0-10); Hematocrit 36.6 % (36.0-46.0); Hemoglobin 12.0 g/dL (12.0-16.0); Immature Granulocytes Auto 0.02 Thou/mm3 (0.00-0.00); Lymphocytes # (Auto) 2.1 Thou/mm3 (1.0-4.8); Lymphocytes % (Auto) 36 % (10-50); Mean Corpuscular HGB Conc 32.8 g/dl (31.0-37.0); Mean Corpuscular Hemoglobin 28.8 pg (25.0-35.0); Mean Corpuscular Volume 88 fL (80-100); Monocytes # (Auto) 0.4 Thou/mm3 (0.0-0.8); Monocytes % (Auto) 6 % (0-12); Neutrophils # (Auto) 3.2 Thou/mm3 (1.8-7.7); Neutrophils % (Auto) 56 % (37-80); Nucleated Red Blood Cell # 0.00 Thou/mm3 (0.00-0.00); Nucleated Red Blood Cell % 0 /100 WBC (0); Platelet Count 143 Thou/mm3 (140-440); RDW Standard Deviation 42.7 fL (36.4-46.3); Red Blood Count 4.16 Miln/mm3 (4.00-5.20); White Blood Count 5.8 Thou/mm3 (3.6-11.0)
[2025-03-22 06:21] LABS: Alanine Aminotransferase 8 U/L (10-49); Albumin, Serum 3.6 gm/dL (3.5-5.0); Albumin/Globulin Ratio 2.1 (1.2-2.2); Alkaline Phosphatase 60 U/L (46-116); Anion Gap 10 (7-16); Aspartate Amino Transferase 16 U/L (0-34); BUN/Creatinine Ratio 14 Ratio (12-20); Bilirubin,Total 1.1 mg/dL (0.3-1.2); Blood Urea Nitrogen 11 mg/dL (9-23); Calcium 9.1 mg/dL (8.3-10.6); Calcium (Corrected) 9.4 mg/dL (8.5-10.1); Carbon Dioxide 29.2 mMol/L (20.0-31.0); Chloride 106 mMol/L (98-107); Creatinine (Component) 0.8 mg/dL (0.6-1.3); Estimated Creatinine Clearance 72.3 mL/min (>60); Globulin 1.7 gm/dL (2.3-3.5); Glucose 89 mg/dL (74-106); Magnesium 2.0 mg/dL (1.6-2.6); Osmolality,Calculated 287 (275-295); Phosphorous 3.3 mg/dL (2.4-5.1); Potassium 3.7 mMol/L (3.4-5.1); Sodium 145 mMol/L (136-145); Total Protein 5.3 gm/dL (5.7-8.2); eGFR > 60 See Note
[2025-03-22 07:50] VITALS: BP 102/68; PULSE 78; RESP 18; TEMP 36.4; O2SAT 98
[2025-03-22] MEDS: HEPARIN SOD INJ 5000 UNIT/ML VIAL SC (09:31)
--- NOTE | 2025-03-22 10:30 | PD.RESDS ---
Planned Discharge Date 03/22/25 DS: Providers Provider Date of admission: 03/20/25 23:07 Primary care physician: Annie Wisdom MD Admitting Provider: Emy Ferrera MD Attending Provider on Admission: Imer Irizarry MD Attending Provider on DC: Imer Irizarry MD Discharging Provider: Imer Irizarry MD DS: Diagnosis Problem List Completed Was Problem List Reviewed/Reconciled?: Yes Hospital Course Hospital Course Hospital course: History of Present Illness Ms Mart is a 55-year-old woman with no significant past medical history who presented with 3 days of abdominal pain nausea vomiting with an extensive surgical history of abdominoplasty tubal ligation and ventral hernia repair. She was admitted for small bowel obstruction. Hospital Course Upon admission, the patient was diagnosed with small bowel obstruction. A nasogastric (NG) tube was placed on low intermittent suction for decompression. She was managed conservatively with bowel rest, intravenous fluids, and monitoring. A small bowel series with Gastrografin contrast was performed, which demonstrated transit of contrast. Serial abdominal imaging, including a follow-up KUB, confirmed resolution of obstruction. The patient subsequently had multiple bowel movements with improvement in symptoms. She tolerated advancement of diet without recurrence of abdominal pain, nausea, or vomiting. She remained hemodynamically stable throughout hospitalization. Condition on Discharge Tolerating regular diet Normal bowel function restored Pain controlled without need for opioids Ambulating independently Vital signs stable Discharge Medications Resume home medications (none reported) Gradually return to normal activities as tolerated. Eat small, light, frequent meals. Follow up with PCP in 1-2 weeks. Use pain medication as needed with no more than 2 tablets in 24hrs. Plan discussed with Dr. Juan C Calvo MD PGY1 Time Spent with Patient Time attestation: Total time spent providing and/or coordinating discharge services: Time spent: Greater than 30 minutes Exam Vital Signs Temp Pulse Resp BP Pulse Ox O2 Del Method 97.5 F 78 18 102/68 98 Room Air 03/22/25 07:50 03/22/25 07:50 03/22/25 07:50 03/22/25 07:50 03/22/25 07:50 03/22/25 07:50 Narrative Exam GENERAL: no acute distress, AAO x3, comfortably laying in bed HEENT: Head AT/ NC. Mucous membranes moist. PERRL. CARDIOVASCULAR: RRR. Normal S1/S2, No m/r/g. No pitting edema of bilateral LEs. RESPIRATORY: CTAB. No wheezing, rhonchi, crackles. GASTROINTESTINAL: Abdomen soft, nontender to palpation no palpable masses. Bowel sounds present MUSCULOSKELETAL:? No cyanosis or edema, no visible joint swelling. NEUROLOGICAL: CN II-XII grossly intact. No focal deficits. Sensation intact, symmetric. PSYCHIATRIC: Awake and alert, not agitated, normal mood and affect. SKIN: No obvious rashes, no jaundice, normal turgor. Discharge Plan Plan Patient Disposition: HOME (Self Care) Patient condition on transfer: Stable Prescriptions/Referrals Prescriptions/Med Rec: No Action hydrocodone-acetaminophen 5-300 mg tablet 1 tab PO BID MDD 2/day PRN (Reason: pain) Qty: 4 0RF Referrals: Annie Wisdom MD [Primary Care Provider, [facility]] Patient/Caregiver Discharge Instructions Other Discharge Activity Instructions:: Gradually return to normal activities as tolerated. Eat small, light, frequent meals. Follow up with PCP in 1-2 weeks. Use pain medication as needed with no more than 2 tablets in 24hrs. Education Materials: Small Bowel Obstruction Print Language: Mongolian Stand Alone Forms: Candice Award Info., Patient Portal Info Letter, Work/Release Restrictions Discharge Order Discharge Orders: Discharge (Routine); Ordered 03/22/25 Ordered By: Christa Mays Quality Discharge Quality Measures VTE prophylaxis Attestestation MD Attestation I have examined the patient, reviewed labs and imaging findings, discussed the case with the resident(s), and reviewed entered orders. I agree with the plan of care as outlined in this note. Time Spent: [address] Juan C MD
[2025-03-22 12:00] VITALS: BP 116/75; PULSE 76; RESP 17; TEMP 36.3; O2SAT 95
== END 2025-03-22 13:30 | disposition home or self-care (01) | DRG 390 ==
LOC: SERX 22:20 → S3SX 03-22 07:07 → SERHOLD 03-24 08:56
PROVIDERS: Nurse Practitioner Family; Admitting Provider Student in an Organized Health Care Education/Training Program; Emergency Provider Emergency Medicine; PCP Family Medicine; Visit Provider Student in an Organized Health Care Education/Training Program
DX: K56.600 Partial intestinal obstruction, unspecified as to cause (principal); E83.52 Hypercalcemia; R73.9 Hyperglycemia, unspecified; R82.71 Bacteriuria; R82.81 Pyuria
CPT/HCPCS: 36415; 74018; 74176; 74250; 80053; 81001; 81025; 83690; 83735; 84100; 85025; 96372; 96374; 96375; 99284; J0131; J1644; J2405; J2470; J7030; J7120; Q9963; A9270